=== PATIENT | female | born 2005 | race Caucasian/White ===

== ENCOUNTER 2024-05-02 19:37 | Emergency (ER) | payer SELFPAY ==
[~2024-05-02] VITALS: Ht 167.6 cm; Wt 65.9 kg
[2024-05-02 19:41] VITALS: BP 129/84; TEMP 98.8
[2024-05-02] MEDS ORDERED: Ibuprofen 600 MG TAB PO ONE (22:30)
[2024-05-02] MEDS ORDERED: NAPROSYN500 MG PO (22:38)
[2024-05-02] MEDS ORDERED: FLEXERIL 1010 MG/TAB PO (22:38)
[2024-05-02 22:57] VITALS: PULSE 80
== END 2024-05-02 22:57 | disposition home or self-care (01) ==
LOC: COL.ER 19:37
DX: S09.90XA Unspecified injury of head, initial encounter (principal); V49.40XA Driver injured in collision with unspecified motor vehicles in traffic accident, initial encounter; Y92.410 Unspecified street and highway as the place of occurrence of the external cause